=== PATIENT | male | born 1950 | race Caucasian/White ===

== ENCOUNTER 2019-05-31 11:20 | Inpatient (IN) | payer OTHER ==
[2019-05-31] MEDS ORDERED: ACETAMINOPHEN 500 MG TAB PO PRN (11:40)
[2019-05-31] MEDS ORDERED: NA CHLORIDE 0.9% 1,000 ML IV SCH (12:00)
[2019-05-31 12:09] LABS: Urine Appearance TURBID; Urine Bilirubin NEGATIVE (NEG); Urine Blood 3+ (NEG); Urine Color DK YELLOW; Urine Glucose NEGATIVE (NEG); Urine Protein 2+ (NEG); Urine Specific Gravity >=1.030 (1.005-1.030); Urine Urobilinogen 0.2 mg/dL (0.2-1.0)
--- NOTE | 2019-05-31 12:22 | RAD REPORT ---
EXAM DESCRIPTION: CT - Abdomen Pelvis Wo Contrast - 05/31/2019 12:13 pm CLINICAL HISTORY: Abdominal pain. pyelonephritis COMPARISON: No comparisons TECHNIQUE: CT imaging of the abdomen and pelvis was performed without contrast. Solid organ, bowel a nd vascular assessment is limited due to lack of IV and oral contrast. All CT scans are performed using dose optimization technique as appropriate and may include automated exposure control or mA/KV adjustment according to patient size. FINDINGS: The lower lung sawyer are clear.Small hiatal hernia. The liver, spleen, pancreas, adrenal glands and kidneys are within normal limits for a limited non-co ntrast examination.Several left sided parapelvic renal cysts. No bowel obstruction, free air, free fluid or abscess. The appendix is normal. Prostate gland is mildly enlarged. Bilateral containing inguinal hernias, slightly greater on the lef t.Mild lumbar spine levoscoliosis. IMPRESSION: No acute intra-abdominal or pelvic findings. A limited non-contrast examination was performed as detailed.
[2019-05-31 12:25] LABS: Absolute Lymphocytes (CBC) 0.5 K/uL (0.7-4.9); Basophils % 0.2 % (0-1.3); Hematocrit 45.6 % (39.6-49.0); Lymphocytes % 12.5 % (15.3-44.8); MPV 9.3 fL (7.6-11.3); RBC Red Blood Cell Count 5.26 M/uL (4.33-5.43)
[2019-05-31] MEDS: CEFTRIAXONE/SWI 1gm 1 GM/10 ML SYR IV SCH ×2 (12:27→21:17)
--- NOTE | 2019-05-31 12:27 | RAD REPORT ---
EXAM DESCRIPTION: RAD - Chest Single View - 05/31/2019 12:19 pm CLINICAL HISTORY: fever Chest pain. COMPARISON: Chest Pa And Lat (2 Views) dated 12/03/2018; Chest Single View dated 01/12/2016; CHEST PA AN D LAT 2 VIEW dated 03/08/2011; CHEST PA AND LAT 2 VIEW dated 12/04/2009 FINDINGS: Portable technique limits examination quality. The lungs are grossly clear. The heart is normal in size. No displaced fractures. IMPRESSION: No acute intrathoracic process suspected.
[2019-05-31 12:45] LABS: Urine Bacteria >50 /HPF (NONE SEEN); Urine Culture Reflex Order NOT NEEDED; Urine RBC >50 /HPF (NONE SEEN)
[2019-05-31 12:48] LABS: Albumin 3.7 g/dL (3.4-5.0); Bilirubin Total 0.8 mg/dL (0.2-1.0); Potassium 3.7 mmol/L (3.5-5.1); Protein, Total 6.6 g/dL (6.4-8.2)
[2019-05-31 12:50] VITALS: BMI 26.3
[2019-05-31] MEDS ORDERED: POTASSIUM CL SA 10 MEQ TAB PO ONE (17:47)
[2019-05-31] MEDS: NA CHLORIDE 0.9% 1,000 ML IV SCH (18:04)
[2019-05-31] MEDS ORDERED: ENOXAPARIN 40 MG/0.4 ML SQ ONE (20:17)
[2019-05-31] MEDS: [UNRECOGNIZED DRUG - REMARK] NS SCH (21:00)
[2019-05-31] MEDS: PROPRANOLOL HCL 10 MG TAB PO SCH (21:16)
[2019-05-31] MEDS: ATORVASTATIN 20 MG TAB PO SCH (21:16)
[2019-05-31] MEDS: FLECAINIDE 100 MG TAB PO SCH (21:26)
--- NOTE | 2019-06-01 01:36 | HP ---
Date of Admission: 05/31/2019 Chief Complaint: Fever and chills. History Of Present Illness: A 68-year-old very pleasant male patient, who came into office today wit h his with complaints of fever, chills, burning sensation on urination that started yesterday ar ound 4:00 p.m. The patient had 2 episodes of vomiting and diarrhea. Denies any abdominal pain. No prior history of kidney stone. No cough, cold, congestion. Patient denies any blood in the urine. After the patient was evaluated in the office he was admitted to the hospital. When I saw him at off ice, he was having chills and shaking, was covered up with 2 jackets, but he was still shaking contin uously when I saw him at the office. Allergies: NO KNOWN ALLERGIES. Medications: List reviewed. Review of Systems: Constitutional: As mentioned above. Genitourinary: As mentioned above. GI: As mentioned above. All other systems reviewed and negative. Past Medical History: Significant for impaired fasting glucose, obstructive sleep apnea, paroxysmal atrial fibrillation, benign prostatic hypertrophy, leukocytopenia, hyperlipidemia, and history of kid gurjit stone. Past Surgical History: Removal of squamous cell carcinoma and knee surgery. Family History: Father and had a kidney cancer. Mother, Alzheimer disease, osteoporosis, and u terine cancer. Social History: Negative for smoking, use of alcohol. Has a glass of wine and beer a few times a we ek. Physical Examination: Vital Signs: Blood pressure 119/75, pulse 71, temperature 100.4, respiratory rate 15, weight 205.4 p ounds, height 74 inches. General: Patient awake, alert, not in any respiratory distress, appearing acutely ill and shaking co nstantly while I saw him at the office. HEENT: Head atraumatic, normocephalic. Conjunctivae nonerythematous. Sclerae white. Mouth, no thr ush or edema noted. Ears/Nose, no mass, lesion, discharge noted. Neck: Supple. No JVD, lymph nodes, bruit, thyromegaly noted. Lungs: Bilateral good equal air entry. Clear to auscultation. No rhonchi. No rales. Heart: Normal heart sounds, no murmur or gallop. Abdomen: Soft, bowel sounds normal. No guarding, rigidity, tenderness, mass, hepatosplenomegaly, dis tention, or bruit noted. Extremities: No leg edema. No calf tenderness. Skin: No rash, ulcer, cellulitis. Lymphatics: No lymph node enlargement in neck, supraclavicular, infraclavicular region. Neuro: No focal neurological deficit. Chest: Unremarkable. External Genitalia: Deferred. Rectal: Deferred. Laboratory Data: After I saw patient, the patient was admitted to the hospital directly and blood wo rk and urinalysis results obtained as below. Urinalysis shows 3+ blood, positive for nitrite, WBC mo re than 50, bacteria more than 50, 2+ protein. Sodium 140, potassium 3.7, chloride 109, bicarb 27, B UN 21, creatinine 1.16, glucose 120. Liver function tests unremarkable. Procalcitonin 0.11, lactic acid 1.2. White count 3.8, hemoglobin 15.6, platelets 127. CAT scan of the abdomen per kidney stone protocol, negative for any acute changes. Impression: 1.Acute pyelonephritis. 2.Rule out sepsis. 3.Leukocytopenia. 4.Thrombocytopenia. 5.Paroxysmal atrial fibrillation. 6.Hyperlipidemia. 7.Benign prostatic hypertrophy. 8.Obstructive sleep apnea. 9.Impaired fasting glucose. Plan: We will admit the patient to hospital for further evaluation and management of this problem. Patient is appropriate for inpatient and is expected to spend 2 midnights in hospital. Home medicati ons will be continued. We will give DVT prophylaxis per order. IV fluid was ordered. We will give him 150 mL/hour for 1 L and then drop down rate to 125 mL/hour. Follow up on blood culture and urine culture results, start empiric antibiotic, ceftriaxone per order. I will see him tomorrow for follo wup. Details and plan of treatment discussed with the patient. EMIL/MODL Voice ID: [id number]
[2019-06-01] MEDS: NA CHLORIDE 0.9% 1,000 ML IV SCH ×3 (02:59→15:12)
[2019-06-01 04:21] LABS: Absolute Lymphocytes (CBC) 1.3 K/uL (0.7-4.9); Basophils % 0.2 % (0-1.3); Hematocrit 40.1 % (39.6-49.0); Lymphocytes % 26.2 % (15.3-44.8); MPV 9.3 fL (7.6-11.3); RBC Red Blood Cell Count 4.58 M/uL (4.33-5.43)
[2019-06-01 04:34] LABS: Potassium 4.2 mmol/L (3.5-5.1)
[2019-06-01] MEDS: CEFTRIAXONE/SWI 1gm 1 GM/10 ML SYR IV SCH ×2 (08:45→20:55)
[2019-06-01] MEDS: PROPRANOLOL HCL 10 MG TAB PO SCH ×2 (08:46→20:54)
[2019-06-01] MEDS: [UNRECOGNIZED DRUG - REMARK] NS SCH ×2 (08:47→20:26)
[2019-06-01] MEDS: FLECAINIDE 100 MG TAB PO SCH ×2 (09:38→20:54)
--- NOTE | 2019-06-01 09:57 | RAD REPORT ---
EXAM DESCRIPTION: US - Renal Ultrasound-Complete - 06/01/2019 9:32 am CLINICAL HISTORY: pyelonephritis, renal cyst COMPARISON: Renal Ultrasound-Complete dated 09/16/2017; Abdomen Pelvis Wo Contrast dated 05/31/2019 FINDINGS: Both kidneys are normal in size, shape and echotexture. The right kidney measures 11.7 x 4.6 x 4.2 cm. No hydronephrosis, focal mass or perinephric fluid. The left kidney measures 10.5 x 5.6 x 4.5 cm. No hydronephrosis, focal mass or perinephric fluid. Par apelvic left renal cysts are suspected, benign in appearance. The urinary bladder is incompletely distended without gross abnormality seen. IMPRESSION: No worrisome renal ultrasound finding.
[2019-06-01] MEDS ORDERED: HOME MED 1 EA UNK (Tadalafil [Cialis] 5 MG) PO SCH (12:00)
[2019-06-01] MEDS ORDERED: ENOXAPARIN 40 MG/0.4 ML SQ SCH (17:00)
[2019-06-01] MEDS: ATORVASTATIN 20 MG TAB PO SCH (20:55)
--- NOTE | 2019-06-02 00:55 | PN ---
Date of Progress Note: 06/01/2019 Subjective: Patient was seen this morning for followup. He was feeling better compared to yesterday . Objective: Vital Signs: Reviewed. HEENT: Unremarkable. Lungs: Clear to auscultation. Heart: Heart sounds normal. Abdomen: Soft. Bowel sounds normal. No guarding, rigidity, tenderness, distention. Extremities: No leg edema. Laboratory Data: White count 5, hemoglobin 13.6, platelets 110. Sodium 141, potassium 4.2, chloride 110, bicarb 29, BUN 16, creatinine 1.13, glucose 110. Impression: 1.Acute pyelonephritis. 2.Rule out sepsis. 3.Thrombocytopenia. Plan: We will continue current medications and continue antibiotics. Cultures pending. Reduced IV fluid to 50 cc/hour. Ambulation was encouraged. I will see him tomorrow for followup. Depending on patient's condition and culture results, discharge can happen as early as tomorrow and details were discussed with patient. We will follow up on renal ultrasound result once it is available. EMIL/MODL Voice ID: [id number] Report ID: [id number]
[2019-06-02] MEDS: NA CHLORIDE 0.9% 1,000 ML IV SCH (05:00)
[2019-06-02 05:15] LABS: Absolute Lymphocytes (CBC) 1.5 K/uL (0.7-4.9); Basophils % 0.7 % (0-1.3); MPV 9.2 fL (7.6-11.3); RBC Red Blood Cell Count 4.29 M/uL (4.33-5.43)
[2019-06-02 05:32] LABS: Potassium 3.8 mmol/L (3.5-5.1)
[2019-06-02 08:01] VITALS: BP 94/64; TEMP 97.4
[2019-06-02] MEDS: [UNRECOGNIZED DRUG - REMARK] NS SCH (08:31)
[2019-06-02] MEDS: CEFTRIAXONE/SWI 1gm 1 GM/10 ML SYR IV SCH (08:31)
[2019-06-02] MEDS: PROPRANOLOL HCL 10 MG TAB PO SCH (08:32)
[2019-06-02] MEDS: FLECAINIDE 100 MG TAB PO SCH (08:33)
[2019-06-02] MEDS ORDERED: POTASSIUM CL SA 10 MEQ TAB PO ONE (09:00)
[2019-06-02 09:52] VITALS: O2SAT 98
--- NOTE | 2019-06-04 01:57 | DS ---
Date of Discharge: 06/02/2019 Disposition: Discharged to go home. Physical Examination: HEENT: Unremarkable. Lungs: Clear to auscultation. Cardiac: Heart sounds normal. Abdomen: Soft, bowel sounds normal. No guarding, rigidity, tenderness, or distention. Extremities: No leg edema. Discharge Medications And Instructions: 1.Continue all prior home medication. 2.Augmentin 875 mg 2 times a day with food for 10 days. 3.Follow up at my office next week. 4.Tamsulosin 0.4 mg p.o. daily to be taken 30 minutes after meal. Final Diagnoses: 1.Acute pyelonephritis. 2.Left renal cyst. 3.Thrombocytopenia. 4.Paroxysmal atrial fibrillation. 5.Benign prostatic hypertrophy. Hospital Course: This is a 68-year-old pleasant male patient who came into office with acute onset o f fever and chills with some dysuria. Please see dictated H and P for more information. After jeff ivy was evaluated at office, he was admitted to the hospital with concerns about acute pyelonephritis and rule out sepsis. Routine blood work was obtained. Urinalysis, urine culture and blood culture w as obtained and patient was started on empiric IV antibiotic which was ceftriaxone. IV fluid was giv en. He became afebrile and remained afebrile. No more episodes of chills. Blood culture remained n egative. Urine culture final report came back on the day of discharge grew E coli and it is sensitiv e to current antibiotic that he is on including all other multiple oral antibiotics. Patient is medi ashley stable for discharge. CAT scan of abdomen per kidney stone protocol was negative for any kidne y stone or acute finding. Renal ultrasound showed benign-appearing left renal cyst for which no inte rvention needed. All the details were discussed with the patient and he was discharged to go home in stable condition. He does have some symptoms related to his benign prostatic hypertrophy in terms o f nocturia and there is a possibility that he may not be emptying his bladder completely due to his e nlarged prostate and with this recent pyelonephritis type of infectious problem, he will benefit from use of medication like tamsulosin and this was discussed with him and he is willing to take it as pr escribed. EMIL/MODL Voice ID: [id number] Report ID: [id number]
== END 2019-06-02 09:50 | disposition home or self-care (01) | DRG 690 ==
LOC: 4TH 11:20
PROVIDERS: ADMIT Internal Medicine; ATTEND Internal Medicine
DX: N10 Acute pyelonephritis (principal); B96.20 Unspecified Escherichia coli [E. coli] as the cause of diseases classified elsewhere; N28.1 Cyst of kidney, acquired; D69.6 Thrombocytopenia, unspecified; I48.0 Paroxysmal atrial fibrillation; N40.0 Benign prostatic hyperplasia without lower urinary tract symptoms
CPT/HCPCS: 36415; 71045; 74176; 76770; 80048; 80053; 81001; 83605; 83735; 84145; 85025; 87040; 87077; 87086; 87088; 87186; J0696; J1650; J7030

== ENCOUNTER 2023-05-12 09:21 | Day surgery (SDC) | payer OTHER ==
[2023-05-12 10:15] LABS: Absolute Lymphocytes (CBC) 0.8 K/uL (0.7-4.9); Hematocrit 41.2 % (39.6-49.0); MCV 86.4 fL (80-100); MPV 8.1 fL (7.6-11.3); Platelets 196 thou/uL (152-406); RBC Red Blood Cell Count 4.77 M/uL (4.33-5.43)
[2023-05-12] MEDS ORDERED: Ringers Lactate 1,000 ML IV ONE (10:28)
[2023-05-12 11:04] LABS: Protime INR 1.37
[2023-05-12] MEDS ORDERED: FENTANYL CITR 100 MCG/2 ML ONE (11:08)
[2023-05-12] MEDS ORDERED: LIDOCAINE 2% MPF 5 ML VIAL ONE (11:08)
[2023-05-12] MEDS ORDERED: propofoL 200 MG/20 ML VIAL IV ONE (11:08)
[2023-05-12] MEDS ORDERED: ONDANSETRON 4 MG/2 ML VIAL ONE (11:08)
--- NOTE | 2023-05-12 11:17 | RAD REPORT ---
EXAM DESCRIPTION: RAD - Chest Pa And Lat (2 Views) - 05/12/2023 11:10 am CLINICAL HISTORY: preop Chest pain. COMPARISON: Chest Pa And Lat (2 Views) dated 11/01/2021; Chest Single View dated 05/31/2019; Chest Pa And Lat (2 Views) dated 12/03/2018; Chest Single View dated 01/12/2016 TECHNIQUE: PA and lateral views of the chest were obtained. FINDINGS: The lungs are hyperexpanded compatible with COPD. The heart is upper limit of normal in si ze. No fracture or aggressive bony process. IMPRESSION: COPD without acute process identified. The USPSTF recommends annual screening for lung cancer with low-dose CT (LDCT) in adults aged 50 to 80 years who have a 20 pack-year smoking history and currently smoke or have quit within the past 15 years.
[2023-05-12] MEDS ORDERED: CEFAZOLIN SODIUM 1 GM/VIAL ONE (11:38)
[2023-05-12] MEDS ORDERED: KETOROLAC 30 MG/ML INJ ONE (11:46)
--- NOTE | 2023-05-12 12:30 | P.BOP ---
Preoperative diagnosis: perianal pain, BRBPR, thrombosed prolapsed hemorrhoid Postoperative diagnosis: same, internal and external thrombosed hemorrhoids Primary procedure: 1. EUA. 2. Anoscopy, 3. Rigid proctoscopy, Secondary procedure: 4. Left posterolateral external hemorrhoidectomy Other procedure(s): 5. Right posterolateral internal hemorrhoidectomy Estimated blood loss: 10cc Specimen: int and external hemorrhoid Findings: as above Anesthesia: General Complications: None Drain(s): Other (surgicell) Transferred to: Recovery Room Condition: Good
[2023-05-12 13:50] VITALS: BP 106/58; TEMP 99; O2SAT 98
== END 2023-05-12 13:37 | disposition home or self-care (01) ==
LOC: OR 09:21
PROVIDERS: ATTEND Surgery
PROC: 06BY0ZC Excision of Hemorrhoidal Plexus, Open Approach (ICD-10-PCS; principal; 2023-05-12 13:00)
DX: K64.5 Perianal venous thrombosis (principal); K62.5 Hemorrhage of anus and rectum; K62.89 Other specified diseases of anus and rectum
CPT/HCPCS: 85025; 80048; 36415; 85610; 88304; 85730; 71046; 46260; J2704; J2001; J3010; J2405; J7120; J0690

== ENCOUNTER 2023-08-27 00:50 | Emergency (ER) | payer OTHER ==
--- NOTE | 2023-08-27 02:12 | ER ---
Nurse's Notes [facility] Name: Marlon Crawford Age: 72 yrs Sex: Male : 1950 Arrival Date: 08/27/2023 Time: 00:50 Bed 5 Private MD: Avi Vergara C Diagnosis: Mechanical complication of urinary (indwelling) catheter Presentation: 08/26 01:19 Chief complaint: Patient states: Had urolioft procedure today and states that he is cm10 having issues with his catheter draining. Pt states that Dr. Vaz changed is catheter to an 18F before being discharged. Pt states that tonight he noticed that it was not draining. Pt noted to have urine in catheter tube with blood clots in bag. Coronavirus screen: Client denies travel out of the [place] in the last 14 days. At this time, the client does not indicate any symptoms associated with coronavirus-19. Ebola Screen: Patient denies travel to an Ebola-affected area in the 21 days before illness onset. No symptoms or risks identified at this time. Initial Sepsis Screen: Does the patient meet any 2 criteria? Yes Does the patient have a suspected source of infection? No. Patient's initial sepsis screen is negative. Risk Assessment: Do you want to hurt yourself or someone else? Patient reports no desire to harm self or others. Onset of symptoms was August 27, 2023. 01:19 Method Of Arrival: Ambulatory cm10 01:19 Acuity: KRIS 4 cm10 Historical: - Allergies: 01:22 No Known Allergies; cm10 - PMHx: 01:22 BPH; tremor on right side; Atrial fibrillation; Hypercholesterolemia; cm10 - PSHx: 01:22 Hemorrhoidectomy; Urolift; cm10 - Immunization history:: Adult Immunizations up to date. - Infectious Disease History:: Denies. - Social history:: Smoking status: Patient denies any tobacco usage or history of. Screenin:35 [facility] ED Fall Risk Assessment (Adult) History of falling in the last 3 months, 8 including since admission No falls in past 3 months (0 pts) Confusion or Disorientation No (0 pts) Intoxicated or Sedated No (0 pts) Impaired Gait No (0 pts) Mobility Assist Device Used No (0 pt) Altered Elimination No (0 pt) Score/Fall Risk Level 0 - 2 = Low Risk. Abuse screen: Denies threats or abuse. Denies injuries from another. Nutritional screening: No deficits noted. Tuberculosis screening: No symptoms or risk factors identified. Assessment: 01:33 General: Appears in no apparent distress. comfortable, Behavior is calm, cooperative. jh8 Pain: Denies pain. Neuro: Level of Consciousness is awake, alert, obeys commands, Oriented to person, place, time, situation. Cardiovascular: Capillary refill < 3 seconds Patient's skin is warm and dry. Respiratory: Airway is patent Respiratory effort is even, unlabored, Respiratory pattern is regular, symmetrical. : Amado in place. Vital Signs: 01:19 BP 114 / 67; Pulse 56; Resp 16; Pulse Ox 99% on R/A; Weight 90.72 kg; Height 6 ft. 2 cm10 in. ; Pain 0/10; 02:02 BP 103 / 61; Pulse 56; Resp 18; Temp 98.6; Pulse Ox 98% on R/A; Pain 0/10; jh8 01:19 Body Mass Index 25.68 (90.72 kg, 187.96 cm) cm10 01:19 Pain Scale: Adult cm10 02:02 Pain Scale: Adult jh8 ED Course: 00:55 Patient arrived in ED. mr 00:55 Avi Vergara MD is Private Physician. mr 01:10 Shaw Ren [facility]. cp 01:10 Shaw Ahmadi MD is Attending Physician. cp 01:22 Triage completed. cm10 01:22 Arm band placed on Patient placed in an exam room, on a stretcher. cm10 01:34 No provider procedures requiring assistance completed. amado catheter irrigation with jh8 120mls of ns, pt felt pressure, drained 300ml of maria g urine with blood clots. 01:36 Patient has correct armband on for positive identification. Placed in gown. Bed in low jh8 position. Call light in reach. Side rails up X 1. Adult w/ patient. Provided Education on: amado irrigation. 02:09 Errol Vaz MD is Referral Physician. cp 02:21 Patient did not have IV access during this emergency room visit. jh8 Administered Medications: No medications were administered Medication: 01:36 VIS not applicable for this client. jh8 Outcome: 02:11 Discharge ordered by . cp 02:20 Discharged to home ambulatory, jh8 02:20 Condition: stable 02:20 Discharge instructions given to patient, Instructed on discharge instructions, follow up and referral plans. Demonstrated understanding of instructions, follow-up care, 02:21 Patient left the ED. jh8 Signatures: Ayesha Ellington, Yony Reg Shaw Ren PA PA cp Martinez, Clarissa, RN RN cm10 Jacob Steele RN RN jh8
--- NOTE | 2023-08-27 02:12 | EDPHYS ---
Physician Documentation [facility] Name: Marlon Crawford Age: 72 yrs Sex: Male : 1950 Arrival Date: 08/27/2023 Time: 00:50 Bed 5 Private MD: Avi Vergara C ED Physician Shaw Ahmadi HPI: 08/26 01:20 This 72 yrs old Male presents to ER via Unassigned with complaints of Problem With cp Urinary Catheter. 01:20 The patient presents with a Martinez catheter problem, is not draining. cp 01:20 Onset: The symptoms/episode began/occurred today. cp 01:20 Patient reports having UroLift procedure performed today by DR Vaz. Martinez was cp placed and this evening stopped draining. 01:20 Associated signs and symptoms: Pertinent negatives: abdominal pain, constipation, cp fever, gross hematuria. Historical: - Allergies: 01:22 No Known Allergies; cm10 - PMHx: 01:22 BPH; tremor on right side; Atrial fibrillation; Hypercholesterolemia; cm10 - PSHx: 01:22 Hemorrhoidectomy; Urolift; cm10 - Immunization history:: Adult Immunizations up to date. - Infectious Disease History:: Denies. - Social history:: Smoking status: Patient denies any tobacco usage or history of. ROS: 01:25 Constitutional: Negative for body aches, chills, fever, cp 01:25 Cardiovascular: Negative for chest pain, cp 01:25 Respiratory: Negative for cough, shortness of breath, wheezing, 01:25 Abdomen/GI: Negative for abdominal pain, 01:25 Back: Negative for pain at rest, pain with movement, 01:25 : Negative for hematuria, testicular pain 01:25 Neuro: Negative for altered mental status, headache, weakness, 01:25 All other systems are negative, Exam: 01:30 Constitutional: The patient appears in no acute distress, alert, awake, non-toxic, well cp developed, well nourished, 01:30 Head/Face: Normocephalic, atraumatic. cp 01:30 Eyes: Periorbital structures: appear normal, Conjunctiva: normal, no exudate, no injection, Lids and lashes: appear normal, bilaterally, 01:30 ENT: External ear(s): are unremarkable, Nose: is normal, Mouth: Lips: moist, Oral mucosa: pink and intact, moist, Posterior pharynx: is normal, airway is patent, no erythema, no exudate, 01:30 Chest/axilla: Inspection: normal, 01:30 Cardiovascular: Rate: bradycardic, 01:30 Respiratory: the patient does not display signs of respiratory distress, Respirations: normal, no use of accessory muscles, no retractions, labored breathing, is not present, Breath sounds: are clear throughout, 01:30 Abdomen/GI: Inspection: abdomen appears normal, Palpation: soft, in all quadrants, mild abdominal tenderness, in the suprapubic area, 01:30 Back: pain, is absent, ROM is normal, Vital Signs: 01:19 BP 114 / 67; Pulse 56; Resp 16; Pulse Ox 99% on R/A; Weight 90.72 kg; Height 6 ft. 2 cm10 in. ; Pain 0/10; 02:02 BP 103 / 61; Pulse 56; Resp 18; Temp 98.6; Pulse Ox 98% on R/A; Pain 0/10; jh8 01:19 Body Mass Index 25.68 (90.72 kg, 187.96 cm) cm10 01:19 Pain Scale: Adult cm10 02:02 Pain Scale: Adult jh8 MDM: 01:10 Patient medically screened. cp 02:10 Data reviewed: vital signs, nurses notes, and as a result, I will discharge patient. cp 02:10 Counseling: I had a detailed discussion with the patient and/or guardian regarding the cp historical points, exam findings, and any diagnostic results supporting the discharge/admit diagnosis, the need for outpatient follow up, a urologist, to return to the emergency department if symptoms worsen or persist or if there are any questions or concerns that arise at home. Response to treatment: the patient's symptoms have resolved after treatment, and as a result, I will discharge patient. 08/26 01:27 Order name: Martinez: irrigate or replace; Complete Time: 01:58 cp Administered Medications: No medications were administered Disposition Summary: 08/27/23 02:11 Discharge Ordered Notes: Location: Home cp Problem: new cp Symptoms: have improved cp Condition: Stable cp Diagnosis - Mechanical complication of urinary (indwelling) catheter cp Followup: cp - With: Errol Vaz MD - When: As needed - Reason: Recheck today's complaints Discharge Instructions: - Discharge Summary Sheet cp - Indwelling Urinary Catheter Insertion, Care After cp Forms: - Medication Reconciliation Form cp - Antibiotic Education cp - Prescription Opioid Use cp - Patient Portal Instructions cp - Leadership Thank You Letter cp Signatures: Shaw Ren PA PA cp Martinez, Clarissa RN RN cm10 Corrections: (The following items were deleted from the chart) 08/27 00:31 08/26 01:25 All other systems are negative, cp cp
[2023-08-27 02:47] VITALS: BP 103/61; TEMP 98.6; O2SAT 98
== END 2023-08-27 02:21 | disposition home or self-care (01) ==
LOC: ER 00:50
DX: T83.098A Other mechanical complication of other urinary catheter, initial encounter (principal); Z98.890 Other specified postprocedural states
CPT/HCPCS: 99283